=== PATIENT | male | born 1935 | race Caucasian/White ===

== ENCOUNTER 2018-04-10 08:29 | Day surgery (SDC) | payer OTHER ==
[~2018-04-10] VITALS: Ht 170.2 cm; Wt 74.8 kg
[~2018-04-10 08:29] MED LIST: CEFAZOLIN 1 GM IVPB PREMIX 50 ML IV ONE
[2018-04-10] MEDS ORDERED: fentaNYL CITRATE/PF 100 MCG/2 ML AMP IVP PRN ×2 (12:30)
[2018-04-10] MEDS ORDERED: ONDANSETRON HCL 4 MG/2 ML VIAL IVP PRN (12:30)
[2018-04-10] MEDS ORDERED: LR 1,000 ML IV.SOLN IV ONE (12:51)
[2018-04-10] MEDS ORDERED: PROPOFOL 200MG/ 20ML VIAL (DIPRIVAN) IV ONE (12:51)
[2018-04-10] MEDS ORDERED: BUPIVACAINE /PF 0.25% 30 ML VIAL INJ ONE (12:51)
[2018-04-10] MEDS ORDERED: WATER FOR IRRIGATION,STERILE 1,000 ML IRRIG.SOLN IR ONE (12:51)
[2018-04-10] MEDS ORDERED: SEVOFLURANE 15 MIN GAS INH ONE (12:51)
[2018-04-10] MEDS ORDERED: fentaNYL CITRATE/PF 100 MCG/2 ML AMP IVP ONE (12:51)
[2018-04-10] MEDS ORDERED: MIDAZOLAM HCL 5 MG/5 ML VIAL IVP ONE (12:51)
[2018-04-10] MEDS ORDERED: D5/0.45 NS 1,000 ML IV SCH (13:46)
[2018-04-10] MEDS ORDERED: HYDROcodone/ACETAMIN 5-325 MG TAB (NORCO/ VICODIN) PO PRN ×2 (14:00)
[2018-04-10] MEDS ORDERED: HYDROmorphone 1 MG INJ. 1 MG/ML AMPUL IVP PRN (14:00)
[2018-04-10 14:30] VITALS: BP_SYST 142
== END 2018-04-10 15:35 | disposition home or self-care (01) ==
LOC: SDS 08:29 → SMU 08:31 → SDS 15:35
PROVIDERS: ATTEND Colon & Rectal Surgery
DX: C44.712 Basal cell carcinoma of skin of right lower limb, including hip (principal); L82.0 Inflamed seborrheic keratosis; D04.71 Carcinoma in situ of skin of right lower limb, including hip; L81.4 Other melanin hyperpigmentation; L72.0 Epidermal cyst; L98.8 Other specified disorders of the skin and subcutaneous tissue; Z88.8 Allergy status to other drugs, medicaments and biological substances; Z79.899 Other long term (current) drug therapy; Z79.01 Long term (current) use of anticoagulants
CPT/HCPCS: 11401; 11604; 12031; 13121; 88305; 88361; J0690; J2250; J2704; J3010; J3490; J7120; 88341; 88342